=== PATIENT | male | born 1980 | race Caucasian/White ===

== ENCOUNTER 2024-06-19 10:14 | Emergency (ER) | payer SELFPAY ==
[2024-06-19] MEDS ORDERED: ACETAMINOPHEN INJECTION 100 ML ONE (11:31)
[2024-06-19] MEDS: SODIUM CHLORIDE 0.9% 500 ML INFUS.BAG IV ONE (11:35)
[2024-06-19] MEDS: ACETAMINOPHEN 1000 MG/100 ML BAG IVPB ONE (11:35)
[2024-06-19 12:02] LABS: BASO % 0.8 % (0-2.0); EOS % 0.3 % (0-4.5); HEMATOCRIT 48.8 % (35.4-49); HEMOGLOBIN 16.3 GM/dL (11.7-16.9); LYMPH % 24.1 % (8-40); MCHC 33.4 g/dl (32.0-35.9); MEAN CELL VOLUME 86.6 fl (80-96); MEAN PLT VOLUME 8.7 fl (7.5-11.1); MONO % 5.4 % (3.8-10.2); NEUT % 69.4 % (42.8-82.8); PLATELET COUNT 290 10^3/uL (134-434); RBC 5.64 M/mm3 (4.00-5.60); RDW 13.6 % (11.9-15.9); WHITE BLOOD COUNT 12.2 K/mm3 (4.0-10.0)
[2024-06-19 12:09] LABS: INR 1.13 (0.83-1.09)
[2024-06-19 12:12] LABS: ACTIVATED PTT 34.7 SECONDS (25.2-36.5)
[2024-06-19 12:27] LABS: CALCIUM 9.8 mg/dL (8.5-10.1)
[2024-06-19 12:28] LABS: BLOOD UREA NITROGEN 8.9 mg/dL (7-18)
[2024-06-19 12:31] LABS: CREATININE 0.8 mg/dL (0.55-1.3)
[2024-06-19 12:32] LABS: BILIRUBIN,TOTAL 0.9 mg/dL (0.2-1); TOT PROT 7.9 g/dl (6.4-8.2)
[2024-06-19 12:54] LABS: EPI CELLS 1 /uL (0-25.1); HYALINE CASTS 0 /uL (0-3.1); PH,URINE 6.5 (5.0-8.0); URINE APPEARANCE CLEAR; URINE BACTERIA 18 /uL (0-1359); URINE BILIRUBIN NEGATIVE (NEGATIVE); URINE COLOR YELLOW; URINE GLUCOSE (UA) NEGATIVE (NEGATIVE); URINE KETONE NEGATIVE (NEGATIVE); URINE LEUK ESTERASE NEGATIVE (NEGATIVE); URINE NITRITE NEGATIVE (NEGATIVE); URINE PROTEIN 2+ (NEGATIVE); URINE RBC 9 /uL (0-23.9); URINE WBC 4 /uL (0-25.8)
[2024-06-19 13:12] VITALS: RESP 18; BMI 35.9
[2024-06-19] MEDS ORDERED: AMOX TR/POT CLAV 875MG/125MG TABLETS (FP) ONE (14:17)
[2024-06-19] MEDS: AMOX TR/POT CLAV 875MG/125MG TABLETS (FP) PO ONE (14:22)
[2024-06-19 14:32] VITALS: BP 140/85; PULSE 81; TEMP 98.3
[2024-06-19 19:23] LABS: HIV INTERPRETATION NEGATIVE (NEGATIVE)
== END 2024-06-19 14:35 | disposition home or self-care (01) ==
LOC: JER 10:14
PROC: 3E033NZ Introduction of Analgesics, Hypnotics, Sedatives into Peripheral Vein, Percutaneous Approach (ICD-10-PCS; principal; 2024-06-19)
DX: R10.32 Left lower quadrant pain (principal); R19.7 Diarrhea, unspecified; K57.92 Diverticulitis of intestine, part unspecified, without perforation or abscess without bleeding; Z20.822 Contact with and (suspected) exposure to COVID-19
CPT/HCPCS: 0241U-QW; 36415; 74177-TC; 80053; 81003; 83690; 83735; 85025; 85610; 85730; 86803; 86850; 86900; 86901; 87086; 87389; 93005; 93010; 99285-25; J0131; Q9967